=== PATIENT | male | born 1970 | race Caucasian/White ===

== ENCOUNTER 2019-12-29 16:33 | Emergency (ER) | payer OTHER ==
[~2019-12-29] VITALS: Ht 172.7 cm; Wt 80.9 kg
[2019-12-29 17:52] LABS: AMPHET/METH SCREEN,URINE NEGATIVE (NEGATIVE); BARBITURATE SCREEN, URINE NEGATIVE (NEGATIVE); BENZODIAZEPINES SCREEN,URINE NEGATIVE (NEGATIVE); CANNABINOID SCREEN,URINE POSITIVE (NEGATIVE); COCAINE SCREEN,URINE NEGATIVE (NEGATIVE); METHADONE SCREEN, URINE POSITIVE (NEGATIVE); OPIATE SCREEN,URINE NEGATIVE (NEGATIVE)
[2019-12-29 17:57] LABS: PHENCYCLIDINE SCREEN,URINE NEGATIVE (NEGATIVE)
[2019-12-29 18:17] VITALS: BP 125/52
[2019-12-29] MEDS ORDERED: KETOROLAC TROMETHAMINE 60 MG/2 ML VIAL IM ONE (18:30)
== END 2019-12-29 19:22 | disposition home or self-care (01) ==
LOC: EMS 16:34
DX: M25.511 Pain in right shoulder (principal)
CPT/HCPCS: J1885

== ENCOUNTER 2019-12-29 22:20 | Emergency (ER) | payer OTHER | END 2019-12-29 22:30 | disposition left against medical advice (07) | LOC: EMS 22:20 | DX: M25.511 Pain in right shoulder (principal); Z53.21 Procedure and treatment not carried out due to patient leaving prior to being seen by health care provider ==